=== PATIENT | male | born 1960 | race Caucasian/White ===

== ENCOUNTER 2022-06-02 03:18 | Emergency (ER) | payer BC ==
[2022-06-02] MEDS: Ondansetron 4 MG/2 ML SDV IM ONE (03:22)
== END 2022-06-02 03:55 | disposition home or self-care (01) ==
LOC: FB.ED 03:18
DX: R04.0 Epistaxis (principal)
CPT/HCPCS: 30901; 30903; 96372; 99281; 99283-25; J2405

== ENCOUNTER 2022-06-03 07:44 | Emergency (ER) | payer BC ==
[2022-06-03] MEDS ORDERED: Sodium Chloride 0.9% 10 ML Syringe FLUSH PRN (07:53)
[2022-06-03] MEDS ORDERED: Tranexamic Acid 1,000 MG in Sodium Chloride 0.9% 50 ML IV ONE (08:03)
[2022-06-03] MEDS ORDERED: Ondansetron 4 MG Tab.DIS PO STA (08:39)
== END 2022-06-03 08:52 | disposition home or self-care (01) ==
LOC: FB.ED 07:44
DX: R04.0 Epistaxis (principal); E78.00 Pure hypercholesterolemia, unspecified; I10 Essential (primary) hypertension; E03.9 Hypothyroidism, unspecified; E66.9 Obesity, unspecified; Z68.25 Body mass index [BMI] 25.0-25.9, adult
CPT/HCPCS: 30903; 96365; 99283; J3490; Q0162

== ENCOUNTER 2022-06-12 03:55 | Emergency (ER) | payer BC ==
[2022-06-12] MEDS ORDERED: Tranexamic Acid 1,000 MG in Sodium Chloride 0.9% 50 ML IV STA (04:16)
== END 2022-06-12 05:17 | disposition home or self-care (01) ==
LOC: FB.ED 03:55
DX: R04.0 Epistaxis (principal); E78.00 Pure hypercholesterolemia, unspecified; I10 Essential (primary) hypertension; E03.9 Hypothyroidism, unspecified; E66.9 Obesity, unspecified; Z68.31 Body mass index [BMI] 31.0-31.9, adult
CPT/HCPCS: 30901; 96374; 99281; 99283; J3490